=== PATIENT | male | born 1995 | race Caucasian/White ===

== ENCOUNTER 2018-04-18 11:09 | Emergency (ER) | payer OTHER ==
--- NOTE | 2018-04-18 11:21 | ER Report ---
History and Physical Time Seen By MD: 11:21 Hx. of Stated Complaint: right ankle injury HPI/ROS CHIEF COMPLAINT: Right ankle pain HISTORY OF PRESENT ILLNESS: 22-year-old male patient present to emergency room with complaint of right ankle pain. Patient states that he was running late for work today. He ran out to his car and slipped on ice. He states that he did that he believes he may have landed on his ankle. He states he was able to get up and walk to work. He denies having any numbness or tingling. Patient does have pain with ambulation. He rates his pain currently a 6 out of 10. He states he is not taking any medication for this. He states this occurred approximately one hour prior to arrival. REVIEW OF SYSTEMS: Respiratory: No cough, no dyspnea. Cardiovascular: No chest pain, no palpitations. Gastrointestinal: No vomiting, no abdominal pain. Musculoskeletal: As noted above Allergies: Coded Allergies: No Known Drug Allergies (Unverified , 04/18/18) Home Meds Active Scripts Hydrocodone Bit/Acetaminophen (HYDROCODON-ACETAMINOPHEN 5-325) 1 Each Tablet, 1 EACH PO Q4-6H PRN for PAIN, #8 TAB Prov:[employer] 04/18/18 Past Medical/Surgical History Patient has a past medical history of stress fractures in the right chin. Patient has a surgical history of tonsillectomy. Reviewed Nurses Notes: Yes Hx Substance Use Disorder: No Constitutional Vital Sign - Last 24 Hours 04/18/18 04/18/18 04/18/18 04/18/18 11:15 11:15 11:16 11:30 Temp 98.1 Pulse 79 ??? Resp 18 B/P (MAP) 144/100 144/100 (115) 142/99 (113) Pulse Ox 93 04/18/18 04/18/18 04/18/18 11:45 12:00 12:15 Pulse 73 B/P (MAP) 130/93 (105) Pulse Ox 95 95 Physical Exam General Appearance: The patient is alert, has no immediate need for airway protection and no current signs of toxicity. Respiratory: Chest is non tender, lungs are clear to auscultation. Cardiac: regular rate and rhythm Musculoskeletal: Neck: Neck is supple and non tender. Extremities have full range of motion and are non tender. Patient has swelling and tenderness to the right lateral malleolus. There is significant swelling. Skin: No rashes or lesions. DIFFERENTIAL DIAGNOSIS: After history and physical exam differential diagnosis was considered for fracture, contusion, sprain. Medical Decision Making EKG/Imaging Imaging Technique: ANKLE 3 VIEW MIN RIGHT HISTORY: fall with pain Comparison studies: None FINDINGS: Noted is an acute, oblique fracture involving the distal fibular metadiaphysis. The fracture line exits at the ankle mortise. The ankle mortise is congruent. Soft tissue swelling is seen adjacent to the lateral malleolus. IMPRESSION: 1. Acute, nondisplaced distal fibular fracture. Report Dictated By: Calvin Estevez DO at 04/18/2018 11:43 AM Report E-Signed By: Calvin Estevez DO at 04/18/2018 11:45 AM ED Course/Re-evaluation ED Course Patient was admitted to exam room, history and physical were obtained. Differential diagnoses were considered. On examination lungs are clear, heart is regular, right ankle is swollen and tender to touch especially on the lateral malleolus. And x-rays obtained of the right ankle which showed a distal fibula fracture. Patient had no tenderness to the proximal fibula therefore did not do tib-fib x-ray. Patient was placed in a walking boot. He was given crutches. We will go ahead and discharge him home at this time. He was given a limited supply of pain medication. He is follow-up with orthopedics. Patient was given their information. Decision to Disposition Date: Apr 18, 2018 Decision to Disposition Time: 12:11 Depart Departure Latest Vital Signs Vital Signs Date Time Temp Pulse Resp B/P (MAP) Pulse Ox O2 Delivery O2 Flow Rate FiO2 04/18/18 12:15 95 04/18/18 12:00 130/93 (105) 04/18/18 11:45 73 04/18/18 11:15 98.1 18 Impression: Primary Impression: Fracture of distal fibula Condition: Improved Disposition: HOME OR SELF-CARE Referrals: GLORIA HILL MD New Scripts Hydrocodone Bit/Acetaminophen (HYDROCODON-ACETAMINOPHEN 5-325) 1 Each Tablet 1 EACH PO Q4-6H PRN for PAIN, #8 TAB Prov: [employer] 04/18/18 Patient Instructions: Ankle Fracture (ED) Additional Instructions: Limit activity by pain. Ice the ankle 2-3 times a day for 20-30 minutes. Where the walking boot whenever you're up moving around, he may take enough sleep or shower. Follow up with [facility], call tomorrow to make an appointment. Keep the splint dry, wrap it with a bag and tape to keep the water out. Return to the ER with uncontrollable pain or numbness to the foot. You may take Ibuprofen as needed for pain in addition to the pain medication. Don't take any additional Tylenol while on the pain medication. Problem Qualifiers Primary Impression: Fracture of distal fibula Encounter type: initial encounter Fracture type: closed Fracture morphology: other fracture Laterality: right Qualified Codes: S82.831A - Other fracture of upper and lower end of right fibula, initial encounter for closed fracture [employer] HALLMAN Apr 18, 2018 11:21
--- NOTE | 2018-04-18 11:49 | RADIOLOGY IMAGING REPORT ---
FACILITY: [facility] - [place] PATIENT NAME: Mateo Cifuentes : 1995 MR: [id number] V: [id number] EXAM DATE: ORDERING PHYSICIAN: AMERICO HALLMAN TECHNOLOGIST: [place] [facility] [place] Mateo Cifuentes : 1995 Visit/Account:[id number] Date of Sevice: 04/18/2018 Technique: ANKLE 3 VIEW MIN RIGHT HISTORY: fall with pain Comparison studies: None FINDINGS: Noted is an acute, oblique fracture involving the distal fibular metadiaphysis. The fractur e line exits at the ankle mortise. The ankle mortise is congruent. Soft tissue swelling is seen adjac ent to the lateral malleolus. IMPRESSION: 1. Acute, nondisplaced distal fibular fracture. Report Dictated By: Calvin Estevez DO at 04/18/2018 11:43 AM Report E-Signed By: Calvin Estevez DO at 04/18/2018 11:45 AM WSN:[id number]
[2018-04-18 12:00] VITALS: BP 130/93
[2018-04-18] MEDS ORDERED: HYDR-385 PO (12:10)
== END 2018-04-18 12:23 | disposition home or self-care (01) ==
LOC: ER 11:28
DX: S82.831A Other fracture of upper and lower end of right fibula, initial encounter for closed fracture (principal)
CPT/HCPCS: 99283